=== PATIENT | male | born 1935 | race Caucasian/White ===

== ENCOUNTER 2016-10-22 19:35 | Emergency (ER) | payer MEDICARE ==
--- NOTE | 2016-10-23 16:00 | ER ---
ADMIT: 10/22/2016 RM/LOC: ER [facility] MR#: [id number] [address] [id number] JESSICA WILSON [address] [place] [address] Emergency Room Report SEX: M AGE: 80 : 1935 DATE: 10/22/2016 BRIEF ADDENDUM: Please see my T-sheet for complete review of systems, past medical history, and physical exam. CHIEF COMPLAINT: Syncopal episode. HISTORY OF PRESENT ILLNESS: This is a pleasant 80-year-old white male, who presents to the emergency department following a syncopal episode, awake this evening. The patient's reports that the patient went to kneel down during the service when he went unresponsive and slumped back into the pew. The patient states he was feeling well prior to awake today. Did report that his last meal was breakfast, and he had a few grapes prior to the service. States he went to kneel down, he felt lightheaded. His vision went white. He felt very warm. He lost consciousness and awoke to several people around him. estimates the loss of consciousness to be less than 60 seconds. He was awake and alert after becoming supine. He was no postictal. He was not incontinent of urine or stool. He was breathing the entire time. Denies any injuries. At present, denies any chest pain, shortness of breath, nausea, or vomiting. States he has some lightheadedness. Prior to the event, denied any chest pain, palpitations, or racing heart. PAST MEDICAL HISTORY: For hypertension and TIA for which he was started on Plavix in June. No history of any cardiac disease or diabetes. COURSE IN THE ER: GENERAL: The patient is seen and examined. VITAL SIGNS: He is afebrile. Temperature 96.8, nontoxic; blood pressure 177/76, heart rate 53, respirations 20, and 99% on room air. He is in no acute distress. He is alert. HEENT: No apparent trauma. Eyes equal and reactive. Pupils are equal and reactive. Pharynx not erythematous. NECK: Soft and supple. No carotid bruit. Reports that he had a carotid ultrasound done within the last 3 months that showed nonocclusive disease. RESPIRATORY: No respiratory distress. Breath sounds are equal bilaterally. HEART: Regular rate and rhythm. Heart sounds normal. No murmurs, gallops, or rubs. ABDOMEN: Soft and nontender. SKIN: Warm and dry. EXTREMITIES: Nontender. No pedal edema. NEURO: He is alert and oriented x4. There is no aphasia or speech cognition abnormalities. He is appropriate and cooperative with exam. He is able to ambulate in the department today. Cranial nerves are normal as tested. No neuro deficits. He has good strength in all 4 extremities. No sensation loss. IMAGING: Head CT negative for any hemorrhage or ischemia. LABORATORY DATA: White count 4.8, hemoglobin 14.2, hematocrit 40.3, platelets 160. Chemistry; sodium 131, potassium 3.8, BUN 16, glucose 136, creatinine ADMIT: 10/22/2016 RM/LOC: ER [facility] MR#: [id number] [address] [place] [id number] [address]ESSICA [address] [place] [address] Emergency Room Report SEX: M AGE: 80 : 1935 1.0. Troponin was less than 0.015. EKG shows sinus bradycardia, rate 52, no ST-T or Q wave abnormalities. Does have a right bundle-branch block. Did get orthostatic blood pressures on him today which are within normal limits. He was given coffee and meal, states he is feeling improved. Comfortable returning home. IMPRESSION: 1. Syncope likely vasovagal. 2. History of transient ischemic attack, on Plavix. 3. Hypertension. DISPOSITION: The patient was discharged home to follow up with Dr. Jeferson Mendoza this next week. Increase fluids. Activity as tolerated. Continue all his home medications. Return with worsening signs or symptoms. Questions were sought and answered to the best of my ability and to the patient's satisfaction. Discharged in stable condition. HETAL Ayala / Aryan Majano MD / ivettel JOB #: [id number] CC: Aryan Majano MD, Attending Physician Jeferson Mendoza MD, Family Physician
== END 2016-10-22 21:48 | disposition home or self-care (01) ==
LOC: ER 19:35
DX: R55 Syncope and collapse (principal); I10 Essential (primary) hypertension; Z85.46 Personal history of malignant neoplasm of prostate; E03.9 Hypothyroidism, unspecified; E78.5 Hyperlipidemia, unspecified; Z79.899 Other long term (current) drug therapy; Z79.01 Long term (current) use of anticoagulants; Z90.79 Acquired absence of other genital organ(s); Z86.73 Personal history of transient ischemic attack (TIA), and cerebral infarction without residual deficits

== ENCOUNTER → 2016-11-03 | Outpatient (CLI) | payer MEDICARE | END | disposition home or self-care (01) | LOC: RAD.S 06:57 | DX: R51 Headache (principal); R55 Syncope and collapse; H53.9 Unspecified visual disturbance; Z86.73 Personal history of transient ischemic attack (TIA), and cerebral infarction without residual deficits ==